=== PATIENT | female | born 1980 | race Caucasian/White ===

== ENCOUNTER 2017-12-15 08:15 | Day surgery (SDC) | payer OTHER ==
[~2017-12-15] VITALS: Ht 157.5 cm; Wt 113.7 kg
[~2017-12-15 08:15] MED LIST: ALEVE220 M2 PO; THRIVE PO
[2017-12-15 09:17] VITALS: BP 145/93
[2017-12-15] MEDS ORDERED: NORCO 5/3251 TABLET PO (11:31)
[2017-12-15 12:43] VITALS: BP 114/76
[2017-12-15 13:50] VITALS: BP 121/75
== END 2017-12-15 14:10 | disposition home or self-care (01) ==
LOC: SDC 08:15
DX: K80.10 Calculus of gallbladder with chronic cholecystitis without obstruction (principal); E66.01 Morbid (severe) obesity due to excess calories; Z68.41 Body mass index [BMI] 40.0-44.9, adult
CPT/HCPCS: 74300; 88304; J0330; J1100; J1885; J2250; J2405; J2710; J3010; J7643; Q0175; S0020; S0074